=== PATIENT | female | born 1955 | race African-American/Black ===

== ENCOUNTER 2020-11-28 19:57 | Observation (INO) ==
[2020-11-28] MEDS ORDERED: LABETALOL 20 MG/4 ML SYRINGE IV PRN (22:11)
[2020-11-29] MEDS ORDERED: GLUCAGON 1 MG VIAL IM PRN (01:48)
[2020-11-29] MEDS ORDERED: DEXTROSE 50% 25 GM/50 ML VIAL IV PRN (01:48)
[2020-11-29] MEDS ORDERED: TOPIRAMATE 100 MG TABLET PO ONE (01:57)
[2020-11-29] MEDS ORDERED: GABAPENTIN 300 MG CAPSULE PO ONE (01:58)
[2020-11-29] MEDS: LORazepam 2 MG/1 ML VIAL IV PRN ×2 (04:21→11:55)
[2020-11-29 07:42] LABS: Risk Ratio 2.01; VLDL CHOLESTEROL 18.4 MG/DL
[2020-11-29 07:50] LABS: Albumin 3.2 G/DL (3.4-5.0); Bilirubin,Total 0.4 MG/DL (0.2-1.0); Calcium 9.3 MG/DL (8.5-10.1); Osmolality,Calculated 281.4 MOS/KG (273-304); Potassium 3.6 MMOL/L (3.5-5.1); Total Protein 7.4 G/DL (6.4-8.3)
[2020-11-29] MEDS: INSULIN REGULAR 100 UNIT/ML SUBCUT SCH ×3 (08:40→16:00)
[2020-11-29] MEDS: TOPIRAMATE 100 MG TABLET PO SCH (10:27)
[2020-11-29] MEDS: GABAPENTIN 300 MG CAPSULE PO SCH (10:31)
[2020-11-29] MEDS: ENOXAPARIN 40 MG/0.4 ML SYRINGE SUBCUT SCH (10:32)
[2020-11-29] MEDS: CLOPIDOGREL 75 MG TABLET PO SCH (10:32)
[2020-11-30] MEDS: GABAPENTIN 300 MG CAPSULE PO SCH ×3 (00:27→20:12)
[2020-11-30] MEDS: INSULIN REGULAR 100 UNIT/ML SUBCUT SCH ×5 (00:27→20:12)
[2020-11-30] MEDS: TOPIRAMATE 100 MG TABLET PO SCH ×3 (00:28→20:12)
[2020-11-30 06:25] LABS: Basophils % 0.5 % (0.0-0.8); Eosinophils # 0.2 10*3/uL (0.0-0.87); Eosinophils % 5.3 % (0.00-10.9); Hematocrit 39.5 VOL% (35.7-47.0); Hemoglobin 12.5 GM/DL (12.0-16.0); Lymphocytes # 2.2 10*3/uL (1.4-4.0); Lymphocytes % 53.9 % (21.3-54.2); Mean Corpuscular HGB Conc 31.6 GM/DL (32-36); Mean Platelet Volume 12.2 FL (9.6-12.0); Monocytes % 8.5 % (1.7-12.7); Neutrophils % 31.8 % (38.7-73.9); Platelet Count 166 T/CUMM (130-400); Red Blood Count 4.76 MC/CUMM (3.8-5.5); Red Cell Distribution Width 15.7 % (9.3-17.3); White Blood Count 4.1 T/CUMM (4-12)
[2020-11-30 07:10] LABS: Atypical Lymphocytes Few; Eosinophils 6 % (0-10); Lymphocytes 51 % (20-55); Segmented Neutrophils 37 % (50-85); Total Cells Counted 100
[2020-11-30 07:11] LABS: Hypochromasia 1+; Microcytosis 1+; Ovalocytes Slight
[2020-11-30 07:12] LABS: Platelet Estimate Adequate
[2020-11-30] MEDS: CLOPIDOGREL 75 MG TABLET PO SCH (09:15)
[2020-11-30] MEDS: ENOXAPARIN 40 MG/0.4 ML SYRINGE SUBCUT SCH (09:15)
[2020-11-30] MEDS ORDERED: hydrALAZINE 20 MG/1 ML VIAL IV PRN (15:25)
[2020-12-01 07:20] LABS: Calcium 9.4 MG/DL (8.5-10.1); Osmolality,Calculated 279.7 MOS/KG (273-304); Potassium 3.6 MMOL/L (3.5-5.1)
[2020-12-01] MEDS: INSULIN REGULAR 100 UNIT/ML SUBCUT SCH ×3 (08:47→16:54)
[2020-12-01] MEDS: GABAPENTIN 300 MG CAPSULE PO SCH (08:59)
[2020-12-01] MEDS: TOPIRAMATE 100 MG TABLET PO SCH (09:00)
[2020-12-01] MEDS: ENOXAPARIN 40 MG/0.4 ML SYRINGE SUBCUT SCH (09:00)
[2020-12-01] MEDS: CLOPIDOGREL 75 MG TABLET PO SCH (09:00)
[2020-12-01 12:04] VITALS: BP 147/95
== END 2020-12-01 18:29 | disposition home health service (06) ==
LOC: N.4E → SUATTDRO 21:24
PROVIDERS: ADMIT Internal Medicine; ATTEND Internal Medicine